=== PATIENT | male | born 1965 | race African-American/Black ===

== ENCOUNTER 2024-01-23 09:29 | Emergency (ER) | payer OTHER ==
[2024-01-23 10:13] LABS: Basophils # (A) 0.1 k/uL (0-0.2); Basophils % (A) 1 %; Eosinophils # (A) 0.4 k/uL (0-0.7); Eosinophils % (A) 5 %; HCT 45.2 % (39.0-53.0); HGB 14.3 gm/dL (13.0-17.5); Hypochromasia Moderate; Lymphocytes # (A) 2.6 k/uL (1.0-4.8); Lymphocytes % (A) 31 %; MCH 28.8 pg (25.0-35.0); MCHC 31.7 g/dL (31.0-37.0); MCV 90.9 fL (80.0-100.0); Mean Platelet Volume 7.7; Monocytes # (A) 0.5 k/uL (0-1.0); Monocytes % (A) 6 %; Neutrophils # (A) 4.5 k/uL (1.3-7.7); Neutrophils % (A) 55 %; Platelet Count 286 k/uL (150-450); RBC 4.97 m/uL (4.30-5.90); RDW 13.4 % (11.5-15.5); WBC 8.2 k/uL (3.8-10.6)
[2024-01-23] MEDS: KETOROLAC 15 MG/ML 1 ML VIAL IVP STA (10:20)
--- NOTE | 2024-01-23 10:20 | ED ---
General Adult HPI - General Chief complaint: Fall Stated complaint: fall/syncope episode Time Seen by Provider: 01/23/24 09:35 Source: patient, EMS Mode of arrival: EMS - History of Present Illness Initial comments: Dictation was produced using [employer] dictation software. please excuse any grammatical, word or spelling errors. Chief Complaint: 58-year-old male presents after syncope History of Present Illness: Patient is 58-year-old male he was brought in from [facility] facility. Patient allegedly had a syncopal episode while sitting in a chair. Patient denies any history of heart attacks. States that he has some pain to his posterior head along with neck. Denies any anticoagulation medications. Patient Nu[place] any heart problems. Patient has been at the detox facility for approximately 5 days. The ROS documented in this emergency department record has been reviewed and confirmed by me. Those systems with pertinent positive or negative responses have been documented in the HPI. All other systems are other negative and/or noncontributory. - Related Data Allergies Allergy/AdvReac Type Severity Reaction Status Date / Time fentanyl Allergy Rash/Hives Verified 01/23/24 09:42 morphine AdvReac Nausea Verified 01/23/24 09:42 Review of Systems ROS Statement: Those systems with pertinent positive or pertinent negative responses have been documented in the HPI. ROS Other: All systems not noted in ROS Statement are negative. Past Medical History Past Medical History: Hyperlipidemia History of Any Multi-Drug Resistant Organisms: None Reported Past Surgical History: Orthopedic Surgery Additional Past Surgical History / Comment(s): Back and neck surgeries Past Psychological History: Depression Smoking Status: Current every day smoker Past Alcohol Use History: None Reported Past Drug Use History: Cocaine General Exam - General Exam Comments Initial Comments: PHYSICAL EXAM: General Impression: Alert and oriented x3, not in acute distress HEENT: Normocephalic atraumatic, extra-ocular movements intact, pupils equal and reactive to light bilaterally, mucous membranes moist. Cardiovascular: Heart regular rate and rhythm Chest: Able to complete full sentences, no retractions, no tachypnea Abdomen: abdomen soft, non-tender, non-distended, no organomegaly Musculoskeletal: Pulses present and equal in all extremities, no peripheral edema Motor: no focal deficits noted Neurological: CN II-XII grossly intact, no focal motor or sensory deficits noted Skin: Intact with no visualized rashes Psych: Normal affect and mood Course Vital Signs 01/23/24 01/23/24 01/23/24 09:32 10:07 11:40 Temperature 98.8 F Pulse Rate 73 70 79 Respiratory 16 18 18 Rate Blood Pressure 153/81 145/88 131/64 O2 Sat by Pulse 100 100 99 Oximetry EKG Findings - EKG Comments: EKG Findings:: My EKG interpretation: Ventricular rate 75, sinus rhythm,. 150, QRS 101, QTc 384. No [place] prolongation, no QTC prolongation, no ST or T-wave changes noted. Overall, this EKG is unremarkable Medical Decision Making - Medical Decision Making Was pt. sent in by a medical professional or institution (, PA, COMMERCIAL CREDIT PORTFOLIO MANAGER, urgent care, hospital, or residential...) When possible be specific @ -No Did you speak to anyone other than the patient for history (EMS, parent, family, police, friend...)? What history was obtained from this source @ -No Did you review nursing and triage notes (agree or disagree)? Why? @ -I reviewed and agree with nursing and triage notes Were old charts reviewed (outside hosp., previous admission, EMS record, old EKG, old radiological studies, urgent care reports/EKG's, residential records)? Report findings @ -No old charts were reviewed Differential Diagnosis (chest pain, altered mental status, abdominal pain women, abdominal pain men, vaginal bleeding, musculoskeletal, weakness, fever, dyspnea, syncope, headache, dizziness, GI bleed, back pain, seizure, CVA, palpatations, mental health)? @ -Differential Syncope: Valvular disease, hypertrophic cardiomyopathy, pulmonary embolism, tamponade, tachycardia, bradycardia, [place], hypovolemia, hemorrhage, dissection, anemia, intracranial hemorrhage, seizure, hypoglycemia, carbon monoxide poisoning, this is not meant to be an all-inclusive list. EKG interpreted by me (3pts min.). @ -See above X-rays interpreted by me (1pt min.). @ -None done CT interpreted by me (1pt min.). @ -CT scan of the head and C-spine shows no acute processes U/S interpreted by me (1pt. min.). @ -None done What testing was considered but not performed or refused? (CT, X-rays, U/S, labs)? Why? @ -None What meds were considered but not given or refused? Why? @ -None Was smoking cessation discussed for >3mins.? @ -No Were there social determinants of health that impacted care today? How? (Homelessness, low income, unemployed, alcoholism, drug addiction, transportation, low edu. Level, literacy, decrease access to med. care, halfway, rehab)? @ -No Was there de-escalation of care discussed even if they declined (Discuss DNR or withdrawal of care, Hospice)? DNR status @ -No What co-morbidities impacted this encounter? (DM, HTN, Smoking, COPD, CAD, Cancer, CVA, ARF, Chemo, Hep., AIDS, mental health diagnosis, sleep apnea, morbid obesity)? @ -None Was patient admitted / discharged? Hospital course, mention meds given and route, prescriptions, significant lab abnormalities, going to OR and other pertinent info. @ -58-year-old male presents to the emergency department after episode of synco pe at detox facility. Vital signs upon arrival are within acceptable limits. Patient has no cardiac comorbidities. Physical examination is benign. Laboratory evaluation is unremarkable. Imaging is negative. Patient observed in the emergency department for approximately 2 hours and 15 minutes reevaluated bedside 11:45 AM found to be in stable condition. Patient discharged advised follow-up with primary care doctor. Did you discuss the management of the patient with other professionals (pro fessionals i.e. , PA, COMMERCIAL [employer] PORTF[employer]IO MANAGER, lab, RT, psych nurse, social media job titles, recycler, teacher, public health service officer, disease case manager)? Give summary @ -No Was critical care preformed (if so, how long)? @ -No Undiagnosed new problem with uncertain prognosis? @ -No Drug Therapy requiring intensive monitoring for toxicity (Heparin, Nitro, Insulin, Cardizem)? @ -No Were any procedures done? @ -No Diagnosis/symptom? Acute, or Chronic, or Acute on Chronic? Uncomplicated (without systemic symptoms) or Complicated (systemic symptoms)? @ -Syncope, no high risk features Side effects of treatment? @ -No Exacerbation, Progression, or Severe Exacerbation? @ -No Poses a threat to life or bodily function? How? (Chest pain, [place], [place], pneumonia, PE, COPD, DKA, ARF, appy, cholecystitis, CVA, Diverticulitis, Homicidal, S uicidal, threat to staff... and all critical care pts) @ -No - Lab Data Result diagrams: 01/23/24 10:06 01/23/24 10:06 Lab Results 01/23/24 01/23/24 Range/Units 10:06 10:06 WBC 8.2 (3.8-10.6) k/uL RBC 4.97 (4.30-5.90) m/uL Hgb 14.3 (13.0-17.5) gm/dL Hct 45.2 (39.0-53.0) % MCV 90.9 (80.0-100.0) fL MCH 28.8 (25.0-35.0) pg MCHC 31.7 (31.0-37.0) g/dL RDW 13.4 (11.5-15.5) % Plt Count 286 (150-450) k/uL MPV 7.7 Neutrophils % 55 % Lymphocytes % 31 % Monocytes % 6 % Eosinophils % 5 % Basophils % 1 % Neutrophils # 4.5 (1.3-7.7) k/uL Lymphocytes # 2.6 (1.0-4.8) k/uL Monocytes # 0.5 (0-1.0) k/uL Eosinophils # 0.4 (0-0.7) k/uL Basophils # 0.1 (0-0.2) k/uL Hypochromasia Moderate Sodium 138 (137-145) mmol/L Potassium 4.4 (3.5-5.1) mmol/L Chloride 104 (98-107) mmol/L Carbon Dioxide 29 (22-30) mmol/L Anion Gap 5 mmol/L BUN 15 (9-20) mg/dL Creatinine 0.60 L (0.66-1.25) mg/dL Est GFR (CKD-EPI)AfAm >90 (>60 ml/min/1.73 sqM) Est GFR (CKD-EPI)NonAf >90 (>60 ml/min/1.73 sqM) Glucose 80 (74-99) mg/dL Calcium 9.4 (8.4-10.2) mg/dL Disposition Clinical Impression: Syncope Disposition: HOME SELF-CARE Condition: Good Instructions (If sedation given, give patient instructions): Syncope (ED) Is patient prescribed a controlled substance at d/c from ED?: No Referrals: None,Stated [Primary Care Provider] - 1-2 days Time of Disposition: 11:45
[2024-01-23 10:28] LABS: African American GFR (CKD) >90 (>60 ml/min/1.73 sqM); Anion Gap 5 mmol/L; Blood Urea Nitrogen 15 mg/dL (9-20); Calcium 9.4 mg/dL (8.4-10.2); Carbon Dioxide 29 mmol/L (22-30); Chloride 104 mmol/L (98-107); Glucose 80 mg/dL (74-99); Non-African American GFR(CKD) >90 (>60 ml/min/1.73 sqM); Potassium 4.4 mmol/L (3.5-5.1); Sodium 138 mmol/L (137-145)
--- NOTE | 2024-01-23 11:42 | CT ---
EXAMINATION TYPE: CT brain cspine wo con CT DLP: 1610.3 mGycm, Automated exposure control for dose reduction was used. DATE OF EXAM: 01/23/2024 11:29 AM COMPARISON: None.. CLINICAL INDICATION:Male, 58 years old with history of fall; Syncope, fall TECHNIQUE: Brain: Multiple axial CT images of the brain were obtained without IV contrast. Cspine: Axial CT images from the skull base to the inferior aspect of T2 we obtained without intraven ous contrast. Coronal and sagittal reformatted images were also reviewed. FINDINGS: Brain: Extra-axial spaces: No abnormal extra-axial fluid collections. Ventricular system: No hydrocephalus. There is a 2 mm hyperdense focus within the region of the quentin en of [place]. Most consistent with calcified choroid plexus Cerebral parenchyma: No acute intraparenchymal hemorrhage or mass effect. The cortez-white junction is well differentiated. Scattered hypoattenuating areas are seen within the periventricular white matte r. Cerebellum: Unremarkable. Mass effect: No evidence of midline shift. Intracranial vasculature: Atherosclerotic calcifications of the intracranial vessels. Soft tissues: Dermal calcifications. Small bilateral frontal scalp lipomas with largest measuring up to 1 cm. Calvarium/osseous structures: No depressed skull fracture. Paranasal sinuses and mastoid air cells: The mastoid air cells are clear. Mild mucosal thickening of the ethmoid sinuses. Bilateral mastoid sinus mucous retention cysts. Visualized orbits: Orbital contents are intact. Cervical spine: Fracture: None. Osseous structures: Postsurgical changes from posterior cervical fusion involving C3-C7 with pedicula r screws and rods. Bilateral pedicle screws are identified at C3-C5 and C7. Single right pedicle scre ws identified at C6. Laminectomy changes are identified from C4 through C6. Multilevel facet arthropa thy. Sclerotic focus identified within the C4 vertebral body. Probable bone island. Multilevel anteri or osteophytosis. Vertebral alignment: No spondylolisthesis. Straightening of the cervical spine which may be due to pa tient position versus muscle spasm. Spinal canal/Neural Foramina: No evidence of significant spinal canal narrowing. Facet joint uncovert ebral joint arthropathy scattered throughout the cervical spine with varying degrees of neural forami nal stenosis. Neck soft tissues: Prevertebral soft tissues are within normal limits. Other: The airway is patent. Paraseptal emphysematous changes. Minimal bilateral carotid bulb calcifi cations. IMPRESSION: 1. No acute intracranial process. 2. Nonspecific white matter changes, likely secondary to chronic small vessel ischemic disease. 3. No evidence of cervical spine fracture. 4. Postsurgical changes from posterior cervical fusion C3-C7. Hardware appears intact. Multilevel de generative disc disease.
[2024-01-23] MEDS: HYDROcodone/APAP 5-325MG 1 EACH TAB PO STA (11:43)
[2024-01-23 12:03] VITALS: BP 151/86; PULSE 72; RESP 16; TEMP 98.1
== END 2024-01-23 12:03 | disposition home or self-care (01) ==
LOC: EC 09:29
CPT/HCPCS: 36415; 70450; 72125; 80048; 85025; 93005; 96374; 99285